=== PATIENT | male | born 1945 | race African-American/Black ===

== ENCOUNTER 2018-04-18 07:20 | Emergency (ER) | payer BC, OTHER ==
[~2018-04-18] VITALS: Ht 177.8 cm; Wt 77.1 kg
[2018-04-18 07:27] VITALS: BP 156/88
== END 2018-04-18 08:45 | disposition home or self-care (01) ==
LOC: ER 07:20
DX: S01.111A Laceration without foreign body of right eyelid and periocular area, initial encounter (principal); S80.212A Abrasion, left knee, initial encounter; M17.12 Unilateral primary osteoarthritis, left knee; I10 Essential (primary) hypertension; W01.198A Fall on same level from slipping, tripping and stumbling with subsequent striking against other object, initial encounter; Y93.89 Activity, other specified; Y99.8 Other external cause status; Y92.89 Other specified places as the place of occurrence of the external cause
CPT/HCPCS: 12011; 73562

== ENCOUNTER 2022-10-29 13:39 | Inpatient (IN) | payer BC ==
[~2022-10-29] VITALS: Ht 162.6 cm; Wt 76.8 kg
[2022-10-29 15:26] LABS: Basophils # (auto) 0 10 ^3/uL (0-0.2); Basophils % (auto) 0.1 % (0.0-2.0); Eosinophils # (auto) 0 10 ^3/uL (0-0.8); Hematocrit 41.4 % (41.0-53.0); Hemoglobin 14.3 g/dL (13.5-17.5); Lymphocytes # (auto) 1.1 10 ^3/uL (0.4-5.4); Lymphocytes % (auto) 6.1 % (10.0-50.0); Mean Corpuscular Hemoglobin 31.4 pg (28.0-32.0); Mean Corpuscular Hgb Conc. 34.6 g/dL (32.0-36.0); Mean Corpuscular Volume 90.8 fL (80.0-100.0); Monocytes % (auto) 5.2 % (0.0-12.0); Neutrophils % (auto) 88.6 % (37.0-80.0); Red Blood Cells 4.56 10^6/uL (4.5-5.90); Red Cell Distribution Width 13.5 % (11.8-14.3); White Blood Cell 18.1 10^3/uL (4.4-10.8)
[2022-10-29 15:36] LABS: Alanine Aminotransferase 32 U/L (7-40); Albumin 4.8 g/dL (3.2-4.8); Alkaline Phosphatase 92 U/L (46-116); Anion Gap 9.2 (5-15); Aspartate Aminotransferase 109 U/L (13-40); BUN/Creatinine Ratio 13.2 (10.0-20.0); Blood Urea Nitrogen 19 mg/dL (9-23); Calcium 9.5 mg/dL (8.5-10.1); Carbon Dioxide 27.8 mmol/L (20-30); Chloride 97 mmol/L (98-107); Glucose 138 mg/dL (74-106); Lipase 29 U/L (12-53); Magnesium 1.8 mg/dL (1.6-2.6); Potassium 3.7 mmol/L (3.5-5.1); Sodium 134 mmol/L (136-145)
[2022-10-29 15:37] LABS: Bilirubin, Total 1.4 mg/dL (0.2-1.0); Total Protein 7.8 g/dL (5.7-8.2)
[2022-10-29] MEDS ORDERED: IOHEXOL 300 MG/ML 100ML BOTTLE IJ ONE (16:20)
[2022-10-29] MEDS ORDERED: PIPERACILLIN-TAZO 4.5GM 100 ML IV ONE (17:45)
[2022-10-29 18:30] VITALS: PULSE 106; RESP 25; O2SAT 95
[2022-10-29] MEDS ORDERED: ACETAMINOPHEN 500 MG TAB PO ONE ×2 (18:45→23:15)
[2022-10-29 19:08] LABS: INR 1.24 (0.9-1.15); Partial Thromboplastin Time 30.3 SEC (24.5-34.5); Prothrombin Time 12.8 sec (9.3-11.8)
[2022-10-29 20:28] VITALS: PULSE 80; RESP 20; O2SAT 94
[2022-10-29] MEDS ORDERED: IBUPROFEN 600 MG TAB PO ONE (23:15)
[2022-10-30] MEDS ORDERED: ONDANSETRON HCL 4 MG/2 ML VIAL IV PRN ×4 (03:15→12:00)
[2022-10-30] MEDS ORDERED: MORPHINE SULFATE INJ 2 MG/ml SYRG IV PRN ×2 (03:15→08:00)
[2022-10-30] MEDS ORDERED: SODIUM CHLORIDE 0.9% 1,000 ML IV ONE (03:30)
[2022-10-30] MEDS ORDERED: PIPERACILLIN-TAZOB 3.375GM 100 ML IV SCH (06:00)
[2022-10-30 07:20] VITALS: PULSE 80; RESP 20; O2SAT 95
[2022-10-30 07:28] LABS: Basophils # (auto) 0.1 10 ^3/uL (0-0.2); Basophils % (auto) 0.3 % (0.0-2.0); Eosinophils # (auto) 0 10 ^3/uL (0-0.8); Eosinophils % (auto) 0.2 % (0.0-7.0); Hematocrit 37.1 % (41.0-53.0); Lymphocytes # (auto) 1.3 10 ^3/uL (0.4-5.4); Mean Corpuscular Volume 91.3 fL (80.0-100.0); Monocytes # (auto) 1.2 10 ^3/uL (0-1.3); Monocytes % (auto) 7.7 % (0.0-12.0); Neutrophils # (auto) 13.4 10 ^3/uL (1.6-8.6); Neutrophils % (auto) 83.8 % (37.0-80.0); Nucleated Red Blood Cells % 0.1 %; Red Blood Cells 4.06 10^6/uL (4.5-5.90); Red Cell Distribution Width 13.5 % (11.8-14.3); White Blood Cell 15.9 10^3/uL (4.4-10.8)
[2022-10-30 07:51] LABS: Chloride 99 mmol/L (98-107); Potassium 3.4 mmol/L (3.5-5.1); Sodium 133 mmol/L (136-145)
[2022-10-30 07:52] LABS: Anion Gap 6.5 (5-15); Calcium 8.8 mg/dL (8.5-10.1); Carbon Dioxide 27.5 mmol/L (20-30)
[2022-10-30 07:57] LABS: Urine Bacteria FEW /hpf (None Seen); Urine Blood 3+ /uL (Negative); Urine Clarity Clear (Clear); Urine Color Yellow (Yellow); Urine Mucus FEW (None Seen); Urine Protein, UAD 2+ (Negative); Urine Sperm PRESENT /hpf (None Seen); Urine Urobilinogen Normal (Negative); Urine WBC 2 /hpf (0 - 3)
[2022-10-30 07:57] LABS: BUN/Creatinine Ratio 9.9 (10.0-20.0); Blood Urea Nitrogen 23 mg/dL (9-23); Glucose 114 mg/dL (74-106)
[2022-10-30] MEDS ORDERED: NITROGLYCERIN 0.4 MG SL TAB SL PRN (08:00)
[2022-10-30 08:02] LABS: Urine Specific Gravity > 1.050 (1.001-1.035)
[2022-10-30] MEDS: SODIUM CHLORIDE 0.9% 1,000 ML IV SCH ×2 (08:15→17:17)
[2022-10-30] MEDS ORDERED: DEXTROSE (50%) 50ML SYRG IV PRN (08:15)
[2022-10-30] MEDS ORDERED: BUPIVACAINE 0.25% INJ 50ML VIAL ONE (09:55)
[2022-10-30] MEDS ORDERED: LIDOCAINE W/ EPINEPHRINE 1% 20ML VIAL ONE (09:55)
[2022-10-30] MEDS ORDERED: fentaNYL CITRATE 100 MCG/2 ML VL ONE (09:56)
[2022-10-30] MEDS ORDERED: MIDAZOLAM HCL 2MG/2ML 2ml VIAL (1mg/ml) ONE (09:56)
[2022-10-30] MEDS ORDERED: MEPERIDINE HCL (50 MG/ML) 1 ML VIAL ONE (09:56)
[2022-10-30] MEDS ORDERED: ACCU-CHEK COMFORT CURVE STRIP VI ONE (10:15)
[2022-10-30] MEDS ORDERED: MIDAZOLAM HCL 2MG/2ML 2ml VIAL (1mg/ml) IV PRN (10:15)
[2022-10-30] MEDS ORDERED: HYDROmorphone HCL 2 MG/ML VL/or syr IV PRN (10:15)
[2022-10-30] MEDS ORDERED: LABETALOL HCL 5 MG/ML 4ML SYRINGE IV PRN (10:15)
[2022-10-30] MEDS ORDERED: ePHEDrine SULFATE 50 MG/ML AMP IV PRN (10:15)
[2022-10-30] MEDS ORDERED: MORPHINE SULFATE 4 MG/ML SYR/VIAL IV PRN (10:15)
[2022-10-30] MEDS ORDERED: DexAMETHasone SOD PHOS 10MG/1ML VIAL INJ ONE (11:02)
[2022-10-30] MEDS ORDERED: ETOMIDATE (2MG/ML) 20ML VIAL IV ONE (11:06)
[2022-10-30] MEDS ORDERED: SUGAMMADEX 200mg/2ml Vial (100MG/ML) IV ONE (11:38)
[2022-10-30 11:59] VITALS: O2SAT 97
[2022-10-30] MEDS ORDERED: HYDROmorphone HCL 2 MG/ML VL/or syr IV ONE (12:00)
[2022-10-30] MEDS ORDERED: SUCCINYLCHOLINE CHLORIDE 20 MG/ML 10ML VIAL IV ONE (12:01)
[2022-10-30] MEDS: PIPERACILLIN-TAZOB 3.375GM 100 ML IV SCH (13:00)
[2022-10-30] MEDS ORDERED: metroNIDAZOLE 500MG/100ML 100 ML IV SCH (14:00)
[2022-10-30 15:00] VITALS: BP 115/70; PULSE 88; RESP 16; TEMP 98; O2SAT 98
[2022-10-30] MEDS: InsuLIN REG 1unit/0.01ml Soln (100units/ml) SC SCH ×2 (17:35→17:38)
[2022-10-30] MEDS: ACCU-CHEK COMFORT CURVE STRIP VI SCH ×2 (17:38→18:00)
[2022-10-30 20:00] VITALS: PULSE 89
[2022-10-30] MEDS: IBUPROFEN 600 MG TAB PO PRN (20:36)
[2022-10-30 22:00] VITALS: BP 114/56; PULSE 99; RESP 18; TEMP 97.8; O2SAT 95
[2022-10-31] VITALS (7 sets, daily range): BP systolic 98–124; BP diastolic 43–72; PULSE 63–87; RESP 17–20; TEMP 97.7–98.2; O2SAT 94–100
[2022-10-31] MEDS ORDERED: metroNIDAZOLE 500MG/100ML 100 ML IV ONE
[2022-10-31] MEDS: ACCU-CHEK COMFORT CURVE STRIP VI SCH ×4 (00:04→17:04)
[2022-10-31] MEDS: InsuLIN REG 1unit/0.01ml Soln (100units/ml) SC SCH ×4 (00:19→17:04)
[2022-10-31] MEDS: PIPERACILLIN-TAZOB 3.375GM 100 ML IV SCH ×2 (01:06→12:14)
[2022-10-31 05:43] LABS: Basophils # (auto) 0 10 ^3/uL (0-0.2); Eosinophils # (auto) 0 10 ^3/uL (0-0.8); Hematocrit 35.5 % (41.0-53.0); Hemoglobin 12.3 g/dL (13.5-17.5); Lymphocytes % (auto) 6.6 % (10.0-50.0); Mean Corpuscular Hemoglobin 31.4 pg (28.0-32.0); Mean Corpuscular Hgb Conc. 34.8 g/dL (32.0-36.0); Mean Corpuscular Volume 90.4 fL (80.0-100.0); Monocytes # (auto) 0.9 10 ^3/uL (0-1.3); Neutrophils # (auto) 12.7 10 ^3/uL (1.6-8.6); Neutrophils % (auto) 87.4 % (37.0-80.0); Nucleated Red Blood Cells % 0.2 %; Red Blood Cells 3.92 10^6/uL (4.5-5.90); Red Cell Distribution Width 13.6 % (11.8-14.3); White Blood Cell 14.5 10^3/uL (4.4-10.8)
[2022-10-31] MEDS ORDERED: metroNIDAZOLE 500MG/100ML 100 ML IV SCH (06:00)
[2022-10-31 06:01] LABS: Alanine Aminotransferase 50 U/L (7-40); Albumin 4.1 g/dL (3.2-4.8); Alkaline Phosphatase 78 U/L (46-116); Anion Gap 7.7 (5-15); Aspartate Aminotransferase 180 U/L (13-40); BUN/Creatinine Ratio 17.5 (10.0-20.0); Bilirubin, Total 1.7 mg/dL (0.2-1.0); Calcium 8.8 mg/dL (8.7-10.4); Carbon Dioxide 25.3 mmol/L (20-30); Chloride 103 mmol/L (98-107); Glucose 132 mg/dL (74-106); Potassium 3.6 mmol/L (3.5-5.1); Sodium 136 mmol/L (136-145); Total Protein 7.1 g/dL (5.7-8.2)
[2022-10-31 06:10] LABS: Blood Urea Nitrogen 33 mg/dL (9-23)
[2022-10-31] MEDS: PANTOPRAZOLE 40 MG/10 ML VIAL INJ IV SCH (10:13)
[2022-10-31] MEDS ORDERED: DICL1GEL73 TD (11:22)
[2022-10-31] MEDS ORDERED: ACE650RS PO (11:22)
[2022-10-31] MEDS ORDERED: AZEL0.054 EACHEYE (11:22)
[2022-10-31] MEDS ORDERED: DOCU-94 PO (11:22)
[2022-10-31] MEDS ORDERED: TRAM-711 PO (11:22)
[2022-10-31] MEDS ORDERED: CETI10CH PO (11:22)
[2022-10-31] MEDS ORDERED: CHOL200064 PO (11:22)
[2022-10-31] MEDS ORDERED: GABA400C PO (11:22)
[2022-10-31] MEDS ORDERED: ATO40T PO (11:22)
[2022-10-31] MEDS ORDERED: LATA0.008 EACHEYE (11:22)
[2022-10-31] MEDS ORDERED: LOSA50TA46 PO (11:22)
[2022-10-31] MEDS ORDERED: EMTR1TAB12 PO (11:22)
[2022-10-31] MEDS ORDERED: BUPR5DIS TOP (11:22)
[2022-10-31] MEDS ORDERED: HYDR25TA5 PO (11:22)
[2022-10-31] MEDS ORDERED: ALBU108A5 IN (11:24)
[2022-10-31] MEDS ORDERED: MONT-8 PO (11:24)
[2022-10-31] MEDS: SODIUM CHLORIDE 0.9% 1,000 ML IV SCH (17:04)
[2022-11-01] MEDS: ACCU-CHEK COMFORT CURVE STRIP VI SCH ×3 (00:12→11:54)
[2022-11-01] MEDS: PIPERACILLIN-TAZOB 3.375GM 100 ML IV SCH ×2 (00:16→11:54)
[2022-11-01] MEDS: InsuLIN REG 1unit/0.01ml Soln (100units/ml) SC SCH ×3 (00:30→11:54)
[2022-11-01 05:00] VITALS: BP 138/58; PULSE 68; RESP 18; TEMP 98.1; O2SAT 100
[2022-11-01] MEDS: IBUPROFEN 600 MG TAB PO PRN (05:19)
[2022-11-01 06:14] LABS: Basophils # (auto) 0 10 ^3/uL (0-0.2); Basophils % (auto) 0.2 % (0.0-2.0); Eosinophils # (auto) 0.1 10 ^3/uL (0-0.8); Eosinophils % (auto) 0.4 % (0.0-7.0); Hemoglobin 14.1 g/dL (13.5-17.5); Lymphocytes # (auto) 1.5 10 ^3/uL (0.4-5.4); Lymphocytes % (auto) 10.6 % (10.0-50.0); Mean Corpuscular Hemoglobin 31.6 pg (28.0-32.0); Mean Corpuscular Hgb Conc. 34.3 g/dL (32.0-36.0); Mean Corpuscular Volume 92.2 fL (80.0-100.0); Monocytes # (auto) 1.2 10 ^3/uL (0-1.3); Monocytes % (auto) 8.5 % (0.0-12.0); Neutrophils # (auto) 11.7 10 ^3/uL (1.6-8.6); Neutrophils % (auto) 80.3 % (37.0-80.0); Red Blood Cells 4.45 10^6/uL (4.5-5.90); Red Cell Distribution Width 13.6 % (11.8-14.3); White Blood Cell 14.5 10^3/uL (4.4-10.8)
[2022-11-01 08:00] VITALS: BP 121/58; PULSE 56; PULSE 67; RESP 17; TEMP 98.1; O2SAT 96
[2022-11-01 09:00] VITALS: BP 117/61; PULSE 60; RESP 17; TEMP 98; O2SAT 94
[2022-11-01] MEDS: SODIUM CHLORIDE 0.9% 1,000 ML IV SCH (10:15)
[2022-11-01] MEDS: PANTOPRAZOLE 40 MG/10 ML VIAL INJ IV SCH (10:57)
[2022-11-01 13:00] VITALS: BP 123/70; PULSE 63; RESP 18; TEMP 97.9; O2SAT 97
[2022-11-01] MEDS ORDERED: AUG875T PO (14:30)
[2022-11-01 15:35] VITALS: BP 112/68; PULSE 78; RESP 18; TEMP 98.2; O2SAT 96
== END 2022-11-01 16:19 | disposition home health service (06) | DRG 854 ==
LOC: ER 13:39 → TELE 10-30 07:58 → TELE-CENTR 10-30 14:30
PROVIDERS: ADMIT Nurse Practitioner Family; ATTEND Hospitalist
PROC: 0DTJ4ZZ Resection of Appendix, Percutaneous Endoscopic Approach (ICD-10-PCS; principal; 2022-10-30 10:39)
DX: A41.9 Sepsis, unspecified organism (principal); K35.891 Other acute appendicitis without perforation, with gangrene; K56.7 Ileus, unspecified; I10 Essential (primary) hypertension; J44.9 Chronic obstructive pulmonary disease, unspecified; M41.9 Scoliosis, unspecified; E78.00 Pure hypercholesterolemia, unspecified; R30.0 Dysuria; K21.9 Gastro-esophageal reflux disease without esophagitis; E11.42 Type 2 diabetes mellitus with diabetic polyneuropathy; Z79.899 Other long term (current) drug therapy; Z21 Asymptomatic human immunodeficiency virus [HIV] infection status
CPT/HCPCS: 36415; 71045; 74177; 80048; 80053; 81001; 82962; 83605; 83690; 83735; 85025; 85610; 85730; 86850; 86900; 86901; 87040; 87075; 87077; 87186; 87205; 96365; 96366; C9113; G0378; J0330; J1100; J1815; J2250; J2543; J3490

== ENCOUNTER 2022-11-09 15:07 | Inpatient (IN) | payer BC ==
[~2022-11-09] VITALS: Ht 177.8 cm; Wt 78.2 kg
[~2022-11-09 15:07] MED LIST: ACE650RS PO; ALBU108A5 IN; ATO40T PO; AUG875T PO; AZEL0.054 EACHEYE; BUPR5DIS TOP; CETI10CH PO; CHOL200064 PO; DICL1GEL73 TD; DOCU-94 PO; EMTR1TAB12 PO; GABA400C PO; HYDR25TA5 PO; LATA0.008 EACHEYE; LOSA50TA46 PO; MONT-8 PO; TRAM-711 PO
[2022-11-09] MEDS ORDERED: SODIUM CHLORIDE 0.9% 1,000 ML IV ONE (16:00)
[2022-11-09 16:21] LABS: Basophils # (auto) 0.1 10 ^3/uL (0-0.2); Eosinophils # (auto) 0.2 10 ^3/uL (0-0.8); Hemoglobin 13.3 g/dL (13.5-17.5)
[2022-11-09 16:22] LABS: Basophils % (auto) 1.1 % (0.0-2.0); Eosinophils % (auto) 1.4 % (0.0-7.0); Hematocrit 39.3 % (41.0-53.0); Lymphocytes % (auto) 18.4 % (10.0-50.0); Mean Corpuscular Hemoglobin 30.9 pg (28.0-32.0); Monocytes # (auto) 0.4 10 ^3/uL (0-1.3); Monocytes % (auto) 3.2 % (0.0-12.0); Neutrophils # (auto) 8.4 10 ^3/uL (1.6-8.6); Neutrophils % (auto) 75.9 % (37.0-80.0); Nucleated Red Blood Cells % 0.1 %; Red Blood Cells 4.32 10^6/uL (4.5-5.90); Red Cell Distribution Width 13.9 % (11.8-14.3); White Blood Cell 11.1 10^3/uL (4.4-10.8)
[2022-11-09 16:39] LABS: Urine Bacteria NONE SEEN /hpf (None Seen); Urine Blood Negative /uL (Negative); Urine Clarity Clear (Clear); Urine Color Yellow (Yellow); Urine Hyaline Cast FEW /lpf (0 - 2); Urine Protein, UAD TRACE (Negative); Urine Specific Gravity 1.019 (1.001-1.035); Urine Urobilinogen Normal (Negative); Urine WBC 1 /hpf (0 - 3); Urine pH 5.5 (5.0-8.0)
[2022-11-09 16:43] LABS: Alanine Aminotransferase 31 U/L (7-40); Albumin 4.3 g/dL (3.2-4.8); Alkaline Phosphatase 97 U/L (46-116); Anion Gap 5.7 (5-15); Aspartate Aminotransferase 19 U/L (13-40); BUN/Creatinine Ratio 21.1 (10.0-20.0); Blood Urea Nitrogen 23 mg/dL (9-23); Calcium 9.5 mg/dL (8.7-10.4); Carbon Dioxide 31.3 mmol/L (20-30); Chloride 102 mmol/L (98-107); Glucose 110 mg/dL (74-106); Lipase 51 U/L (12-53); Sodium 139 mmol/L (136-145)
[2022-11-09 16:44] LABS: Bilirubin, Total 0.5 mg/dL (0.2-1.0); Total Protein 7.3 g/dL (5.7-8.2)
[2022-11-09] MEDS ORDERED: IOHEXOL 300 MG/ML 100ML BOTTLE IJ ONE (18:01)
[2022-11-09] MEDS ORDERED: metroNIDAZOLE 500MG/100ML 100 ML IV ONE (20:30)
[2022-11-09] MEDS ORDERED: HYDROmorphone HCL 2 MG/ML VL/or syr IV ONE (20:30)
[2022-11-09] MEDS ORDERED: ONDANSETRON HCL 4 MG/2 ML VIAL IV ONE (20:30)
[2022-11-09] MEDS ORDERED: cefTRIAXone 1GM/50ML D5W 50 ML IV ONE (20:30)
[2022-11-09] MEDS ORDERED: ACETAMINOPHEN 325 MG TAB PO PRN (21:00)
[2022-11-09] MEDS ORDERED: hydrALAZINE HCL 10 MG TAB PO PRN (21:00)
[2022-11-09] MEDS: metroNIDAZOLE 500MG/100ML 100 ML IV SCH (22:53)
[2022-11-10 00:45] VITALS: PULSE 75; RESP 17; O2SAT 97
[2022-11-10] MEDS ORDERED: DEXTROSE (50%) 50ML SYRG IV PRN (02:00)
[2022-11-10] MEDS: MORPHINE SULFATE INJ 2 MG/ml SYRG IV PRN ×2 (02:19→22:44)
[2022-11-10] MEDS: SODIUM CHLORIDE 0.9% 1,000 ML IV SCH ×3 (02:21→21:45)
[2022-11-10] MEDS: ONDANSETRON HCL 4 MG/2 ML VIAL IV PRN (02:21)
[2022-11-10] MEDS: HYDROcodone-ACET 5/325MG TAB PO PRN ×2 (03:52→20:26)
[2022-11-10] MEDS: InsuLIN REG 1unit/0.01ml Soln (100units/ml) SC SCH ×4 (06:30→22:00)
[2022-11-10] MEDS: ACCU-CHEK COMFORT CURVE STRIP VI SCH ×4 (06:30→22:00)
[2022-11-10] MEDS: metroNIDAZOLE 500MG/100ML 100 ML IV SCH ×2 (06:30→15:39)
[2022-11-10 06:31] LABS: Chloride 106 mmol/L (98-107); Potassium 3.8 mmol/L (3.5-5.1); Sodium 139 mmol/L (136-145)
[2022-11-10 06:32] LABS: Anion Gap 7.6 (5-15); Calcium 8.7 mg/dL (8.5-10.1); Carbon Dioxide 25.4 mmol/L (20-30)
[2022-11-10 06:37] LABS: Glucose 97 mg/dL (74-106)
[2022-11-10 06:38] LABS: BUN/Creatinine Ratio 11.1 (10.0-20.0); Blood Urea Nitrogen 12 mg/dL (9-23)
[2022-11-10 07:25] VITALS: PULSE 69; RESP 19; O2SAT 94
[2022-11-10 07:57] LABS: Basophils # (auto) 0.1 10 ^3/uL (0-0.2); Basophils % (auto) 0.5 % (0.0-2.0); Eosinophils # (auto) 0.2 10 ^3/uL (0-0.8); Eosinophils % (auto) 1.6 % (0.0-7.0); Hematocrit 37.1 % (41.0-53.0); Hemoglobin 12.4 g/dL (13.5-17.5); Lymphocytes # (auto) 2.1 10 ^3/uL (0.4-5.4); Lymphocytes % (auto) 20.8 % (10.0-50.0); Mean Corpuscular Hemoglobin 31.8 pg (28.0-32.0); Mean Corpuscular Hgb Conc. 33.5 g/dL (32.0-36.0); Mean Corpuscular Volume 95.2 fL (80.0-100.0); Monocytes # (auto) 0.6 10 ^3/uL (0-1.3); Monocytes % (auto) 5.9 % (0.0-12.0); Neutrophils # (auto) 7.2 10 ^3/uL (1.6-8.6); Neutrophils % (auto) 71.2 % (37.0-80.0); Red Cell Distribution Width 13.8 % (11.8-14.3); White Blood Cell 10.1 10^3/uL (4.4-10.8)
[2022-11-10 08:25] LABS: INR 1.14 (0.9-1.15); Partial Thromboplastin Time 28.4 SEC (24.5-34.5); Prothrombin Time 11.9 sec (9.3-11.8)
[2022-11-10] MEDS ORDERED: cefTRIAXone 1GM/50ML D5W 50 ML IV SCH (10:00)
[2022-11-10] MEDS ORDERED: LIDOCAINE 2%HCL (LOCAL ANESTH.) INJ 10ml MDV ONE (14:03)
[2022-11-10] MEDS ORDERED: MIDAZOLAM HCL 2MG/2ML 2ml VIAL (1mg/ml) IV ONE (14:15)
[2022-11-10] MEDS ORDERED: fentaNYL CITRATE 100 MCG/2 ML VL IV ONE (14:15)
[2022-11-10] MEDS ORDERED: MEROPENEM 1GM IVPB 100 ML IV ONE (16:00)
[2022-11-10] MEDS ORDERED: GABA-1251 PO (18:16)
[2022-11-10] MEDS ORDERED: ATOR40TA52 PO (18:16)
[2022-11-10] MEDS ORDERED: HYDR12.55 PO (18:16)
[2022-11-10] MEDS ORDERED: BUPR5DIS TOP (18:16)
[2022-11-10] MEDS ORDERED: DEXL60CA7 PO (18:16)
[2022-11-10 20:00] VITALS: PULSE 85; PULSE 90; RESP 17; O2SAT 97
[2022-11-10 21:45] VITALS: BP 134/70; PULSE 79; RESP 18; TEMP 98.6; O2SAT 97
[2022-11-10] MEDS: MEROPENEM 1GM IVPB 100 ML IV SCH (22:45)
[2022-11-11] VITALS (7 sets, daily range): BP systolic 138–157; BP diastolic 71–78; PULSE 69–82; RESP 17–19; TEMP 98.1–98.6; O2SAT 95–99
[2022-11-11] MEDS: MEROPENEM 1GM IVPB 100 ML IV SCH ×3 (05:27→22:14)
[2022-11-11] MEDS: GABAPENTIN 400 MG CAP PO SCH ×3 (05:28→22:12)
[2022-11-11] MEDS: InsuLIN REG 1unit/0.01ml Soln (100units/ml) SC SCH ×4 (05:46→22:00)
[2022-11-11] MEDS: ACCU-CHEK COMFORT CURVE STRIP VI SCH ×4 (05:46→22:31)
[2022-11-11 06:53] LABS: Anion Gap 7.3 (5-15); Carbon Dioxide 28.7 mmol/L (20-30); Chloride 106 mmol/L (98-107); Potassium 3.8 mmol/L (3.5-5.1); Sodium 142 mmol/L (136-145)
[2022-11-11 06:54] LABS: Calcium 8.7 mg/dL (8.7-10.4)
[2022-11-11 06:59] LABS: BUN/Creatinine Ratio 15.6 (10.0-20.0); Blood Urea Nitrogen 15 mg/dL (9-23); Glucose 82 mg/dL (74-106)
[2022-11-11 07:01] LABS: Basophils # (auto) 0.1 10 ^3/uL (0-0.2); Eosinophils # (auto) 0.2 10 ^3/uL (0-0.8); Hemoglobin 12.2 g/dL (13.5-17.5); Monocytes # (auto) 0.6 10 ^3/uL (0-1.3)
[2022-11-11 07:04] LABS: Basophils % (auto) 0.7 % (0.0-2.0); Eosinophils % (auto) 2.1 % (0.0-7.0); Hematocrit 36.7 % (41.0-53.0); Lymphocytes # (auto) 1.8 10 ^3/uL (0.4-5.4); Lymphocytes % (auto) 21.1 % (10.0-50.0); Mean Corpuscular Hemoglobin 30.9 pg (28.0-32.0); Mean Corpuscular Hgb Conc. 33.3 g/dL (32.0-36.0); Mean Corpuscular Volume 92.8 fL (80.0-100.0); Monocytes % (auto) 7.7 % (0.0-12.0); Neutrophils # (auto) 5.7 10 ^3/uL (1.6-8.6); Neutrophils % (auto) 68.4 % (37.0-80.0); Red Blood Cells 3.95 10^6/uL (4.5-5.90); Red Cell Distribution Width 13.9 % (11.8-14.3); White Blood Cell 8.3 10^3/uL (4.4-10.8)
[2022-11-11] MEDS: ODEFSEY PO SCH (10:00)
[2022-11-11] MEDS: HYOSCYAMINE SULF 0.125 MG ODT TAB PO SCH ×2 (14:51→22:29)
[2022-11-11] MEDS: LISINOPRIL 10 MG TAB PO SCH (22:14)
[2022-11-12] VITALS (7 sets, daily range): BP systolic 118–138; BP diastolic 64–73; PULSE 66–81; RESP 17–18; TEMP 98.2–98.6; O2SAT 96–99
[2022-11-12] MEDS: MORPHINE SULFATE INJ 2 MG/ml SYRG IV PRN (00:50)
[2022-11-12] MEDS: HYOSCYAMINE SULF 0.125 MG ODT TAB PO SCH ×3 (05:55→22:06)
[2022-11-12] MEDS: GABAPENTIN 400 MG CAP PO SCH ×3 (05:55→22:07)
[2022-11-12] MEDS: MEROPENEM 1GM IVPB 100 ML IV SCH ×3 (05:55→22:06)
[2022-11-12] MEDS: ACCU-CHEK COMFORT CURVE STRIP VI SCH ×4 (06:00→22:07)
[2022-11-12] MEDS: InsuLIN REG 1unit/0.01ml Soln (100units/ml) SC SCH ×4 (06:02→22:00)
[2022-11-12] MEDS: ENOXAPARIN SOD 40 MG/0.4 ML SYRINGE SC SCH (09:50)
[2022-11-12] MEDS: LISINOPRIL 10 MG TAB PO SCH ×2 (09:51→22:07)
[2022-11-12] MEDS: ODEFSEY PO SCH (09:51)
[2022-11-13] VITALS (7 sets, daily range): BP systolic 123–145; BP diastolic 59–72; PULSE 63–87; RESP 16–19; TEMP 97.9–98.7; O2SAT 93–99
[2022-11-13 05:27] LABS: Basophils # (auto) 0.1 10 ^3/uL (0-0.2); Eosinophils # (auto) 0.2 10 ^3/uL (0-0.8); Neutrophils # (auto) 3.5 10 ^3/uL (1.6-8.6); Nucleated Red Blood Cells % 0.1 %; Red Cell Distribution Width 13.6 % (11.8-14.3); White Blood Cell 6.2 10^3/uL (4.4-10.8)
[2022-11-13 05:31] LABS: Eosinophils % (auto) 2.9 % (0.0-7.0); Hematocrit 36.7 % (41.0-53.0); Hemoglobin 12.5 g/dL (13.5-17.5); Lymphocytes # (auto) 1.8 10 ^3/uL (0.4-5.4); Mean Corpuscular Hemoglobin 30.9 pg (28.0-32.0); Mean Corpuscular Volume 90.8 fL (80.0-100.0); Monocytes # (auto) 0.7 10 ^3/uL (0-1.3); Monocytes % (auto) 10.9 % (0.0-12.0); Neutrophils % (auto) 56.2 % (37.0-80.0); Red Blood Cells 4.04 10^6/uL (4.5-5.90)
[2022-11-13 05:35] LABS: Anion Gap 9.6 (5-15); Calcium 8.5 mg/dL (8.7-10.4); Carbon Dioxide 24.4 mmol/L (20-30); Chloride 106 mmol/L (98-107); Potassium 3.4 mmol/L (3.5-5.1); Sodium 140 mmol/L (136-145)
[2022-11-13 05:41] LABS: BUN/Creatinine Ratio 18.4 (10.0-20.0); Blood Urea Nitrogen 16 mg/dL (9-23); Glucose 85 mg/dL (74-106)
[2022-11-13] MEDS: GABAPENTIN 400 MG CAP PO SCH ×3 (05:54→22:20)
[2022-11-13] MEDS: MEROPENEM 1GM IVPB 100 ML IV SCH ×3 (05:54→22:20)
[2022-11-13] MEDS: HYOSCYAMINE SULF 0.125 MG ODT TAB PO SCH ×3 (05:54→22:20)
[2022-11-13] MEDS: ACCU-CHEK COMFORT CURVE STRIP VI SCH ×2 (05:58→11:31)
[2022-11-13] MEDS: InsuLIN REG 1unit/0.01ml Soln (100units/ml) SC SCH ×2 (06:01→11:30)
[2022-11-13] MEDS: MORPHINE SULFATE INJ 2 MG/ml SYRG IV PRN ×2 (06:11→22:33)
[2022-11-13] MEDS: ENOXAPARIN SOD 40 MG/0.4 ML SYRINGE SC SCH (09:54)
[2022-11-13] MEDS: LISINOPRIL 10 MG TAB PO SCH ×2 (09:54→22:21)
[2022-11-13] MEDS: ODEFSEY PO SCH (09:54)
[2022-11-13] MEDS ORDERED: PANTOPRAZOLE 40 MG TAB PO ONE (15:30)
[2022-11-13] MEDS: ONDANSETRON HCL 4 MG/2 ML VIAL IV PRN (23:24)
[2022-11-14] VITALS (7 sets, daily range): BP systolic 111–145; BP diastolic 62–77; PULSE 62–79; RESP 16–20; TEMP 98.2–98.5; O2SAT 95–98
[2022-11-14] MEDS: GABAPENTIN 400 MG CAP PO SCH ×3 (05:56→21:41)
[2022-11-14] MEDS: HYOSCYAMINE SULF 0.125 MG ODT TAB PO SCH ×3 (05:56→21:41)
[2022-11-14] MEDS: MEROPENEM 1GM IVPB 100 ML IV SCH ×3 (05:56→21:41)
[2022-11-14] MEDS: LISINOPRIL 10 MG TAB PO SCH ×2 (09:32→21:42)
[2022-11-14] MEDS: PANTOPRAZOLE 40 MG TAB PO SCH (09:32)
[2022-11-14] MEDS: ODEFSEY PO SCH (09:32)
[2022-11-14] MEDS: ENOXAPARIN SOD 40 MG/0.4 ML SYRINGE SC SCH (09:33)
[2022-11-14] MEDS ORDERED: IOHEXOL 300 MG/ML 100ML BOTTLE IJ ONE (18:06)
[2022-11-14] MEDS: MORPHINE SULFATE INJ 2 MG/ml SYRG IV PRN (21:51)
[2022-11-15 05:00] VITALS: BP 129/63; PULSE 67; RESP 18; TEMP 98.1; O2SAT 98
[2022-11-15] MEDS: HYOSCYAMINE SULF 0.125 MG ODT TAB PO SCH (05:41)
[2022-11-15] MEDS: GABAPENTIN 400 MG CAP PO SCH (05:41)
[2022-11-15] MEDS: MEROPENEM 1GM IVPB 100 ML IV SCH (05:41)
[2022-11-15 07:54] VITALS: PULSE 74; RESP 17; O2SAT 95
[2022-11-15 08:00] VITALS: PULSE 65
[2022-11-15 09:00] VITALS: BP 126/70; PULSE 78; RESP 16; TEMP 98.3; O2SAT 98
[2022-11-15] MEDS: LISINOPRIL 10 MG TAB PO SCH (09:35)
[2022-11-15] MEDS: PANTOPRAZOLE 40 MG TAB PO SCH (09:35)
[2022-11-15] MEDS: ENOXAPARIN SOD 40 MG/0.4 ML SYRINGE SC SCH (09:35)
[2022-11-15] MEDS: ODEFSEY PO SCH (09:36)
[2022-11-15] MEDS ORDERED: CEFD300C2 PO (11:52)
[2022-11-15] MEDS ORDERED: LACTCAP35 PO (11:52)
[2022-11-15] MEDS ORDERED: HYOS0.1289 PO (11:52)
[2022-11-15 12:32] VITALS: BP 109/64; PULSE 66; RESP 16; TEMP 98.4; O2SAT 98
[2022-11-15 12:57] VITALS: BP 109/64; PULSE 66; RESP 16; TEMP 98.4; O2SAT 98
== END 2022-11-15 13:10 | disposition home or self-care (01) | DRG 388 ==
LOC: ER 15:07 → TELE 21:19 → TELE-EAST 11-10 16:20
PROVIDERS: ADMIT Nurse Practitioner Family; ATTEND Hospitalist
PROC: 0W9J30Z Drainage of Pelvic Cavity with Drainage Device, Percutaneous Approach (ICD-10-PCS; principal; 2022-11-10)
DX: K56.7 Ileus, unspecified (principal); K65.1 Peritoneal abscess; N39.0 Urinary tract infection, site not specified; I10 Essential (primary) hypertension; E11.9 Type 2 diabetes mellitus without complications; N40.0 Benign prostatic hyperplasia without lower urinary tract symptoms; J44.9 Chronic obstructive pulmonary disease, unspecified; B95.2 Enterococcus as the cause of diseases classified elsewhere; M41.9 Scoliosis, unspecified; H40.9 Unspecified glaucoma; Z90.49 Acquired absence of other specified parts of digestive tract; B96.5 Pseudomonas (aeruginosa) (mallei) (pseudomallei) as the cause of diseases classified elsewhere
CPT/HCPCS: 10005; 36415; 71045; 72192; 74177; 76705; 77012; 80048; 80053; 81001; 82962; 83605; 83690; 85025; 85610; 85730; 87077; 87086; 87088; 87186; 87205; 96365; 96368; 96375; C1729; G0378; J0696; J2001; J2185; J2250; J2405; J3490

== ENCOUNTER 2023-12-13 06:49 | Day surgery (SDC) | payer BC ==
[~2023-12-13] VITALS: Ht 177.8 cm; Wt 77.1 kg
[~2023-12-13 06:49] MED LIST changes: -ATO40T PO; +ATOR-507 PO; -AUG875T PO; +BUDE1AER15 IN; -BUPR5DIS TOP; +CARB1DRO2 OP; -CHOL200064 PO; +CHOL20007 PO; +DEXL60CA7 PO; +FERR140T5 PO; +HYDR12.55 PO; -HYDR25TA5 PO; +LACTCAP35 PO; +LIDO5DIS21 TOP; +LOSA-534 PO; -LOSA50TA46 PO; +MISC1TAB PO; -MONT-8 PO; +MULT-222 PO; +POM; +POM PO
[2023-12-13] MEDS ORDERED: IODIXANOL 320MG/ML 100ML BTL IV ONE (08:15)
[2023-12-13] MEDS ORDERED: HEPARIN IN NS 1000Units/500mL 1,500 ML ONE (08:15)
[2023-12-13] MEDS ORDERED: fentaNYL CITRATE 100 MCG/2 ML VL ONE (08:59)
[2023-12-13] MEDS ORDERED: VERAPAMIL 2.5MG/ML INJ 2ML VIAL IV ONE (08:59)
[2023-12-13] MEDS ORDERED: HEPARIN SODIUM (PORCINE) 5000 UNITS/ML 1ML VIAL ONE (08:59)
[2023-12-13] MEDS ORDERED: MIDAZOLAM HCL 2MG/2ML 2ml VIAL (1mg/ml) ONE (09:00)
[2023-12-13] MEDS ORDERED: LIDOCAINE 2%HCL (LOCAL ANESTH.) INJ 20ML MDV ONE (09:00)
[2023-12-13] MEDS ORDERED: SODIUM CHL 0.9% 0 ML ONE (09:05)
[2023-12-13] MEDS ORDERED: ANGIOMAX 250 MG VIAL IV ONE (09:05)
[2023-12-13 09:46] VITALS: BP 166/84; PULSE 65; RESP 16; O2SAT 98
[2023-12-13 10:00] VITALS: BP 154/74; PULSE 50; RESP 13; O2SAT 98
[2023-12-13 10:13] VITALS: BP 135/73; PULSE 54; RESP 13; O2SAT 99
[2023-12-13 10:27] VITALS: BP 144/71; PULSE 50; RESP 12; O2SAT 99
[2023-12-13 10:58] VITALS: BP 153/72; PULSE 51; RESP 12; O2SAT 99
[2023-12-13 11:43] VITALS: BP 157/84; PULSE 50; RESP 16; O2SAT 100
== END 2023-12-13 12:05 | disposition home or self-care (01) ==
LOC: CATH 06:49
PROVIDERS: ATTEND Internal Medicine
DX: R06.02 Shortness of breath (principal); I25.10 Atherosclerotic heart disease of native coronary artery without angina pectoris; E11.59 Type 2 diabetes mellitus with other circulatory complications; I10 Essential (primary) hypertension; E78.5 Hyperlipidemia, unspecified; J44.9 Chronic obstructive pulmonary disease, unspecified; Z87.891 Personal history of nicotine dependence; Z82.49 Family history of ischemic heart disease and other diseases of the circulatory system; Z83.3 Family history of diabetes mellitus; Z91.011 Allergy to milk products; Z91.018 Allergy to other foods
CPT/HCPCS: 75580; 93458; C1887; C1894; J1644; J2250; J3010; J7030; Q9967; 99152; 99153